=== PATIENT | male | born 1995 ===

== ENCOUNTER 2024-08-16 05:07 | Day surgery (SDC) | payer OTHER ==
[~2024-08-16 05:07] MED LIST: ATORVASTATIN CA40 MG
[2024-08-16] MEDS ORDERED: CEFAZOLIN SODIUM 1,000 MG VIAL IV ONE (07:45)
[2024-08-16] MEDS ORDERED: FAMOTIDINE/PF 20 MG/10 ML SYRINGE IV SCH (10:15)
[2024-08-16] MEDS ORDERED: MORPHINE SULFATE 4 MG/ML VIAL IV ONE ×2 (10:15→10:45)
[2024-08-16] MEDS ORDERED: CEFAZOLIN SODIUM 1,000 MG VIAL IV SCH (10:15)
== END 2024-08-16 14:35 | disposition home or self-care (01) ==
LOC: CIR.AMB 05:07
PROVIDERS: ATTEND Specialist
DX: K40.90 Unilateral inguinal hernia, without obstruction or gangrene, not specified as recurrent (principal)